=== PATIENT | female | born 1995 | race Caucasian/White ===

== ENCOUNTER 2018-09-03 07:15 | Emergency (ER) | payer SELFPAY ==
[~2018-09-03] VITALS: Ht 167.6 cm; Wt 49.9 kg
[~2018-09-03 07:15] MED LIST: AMOX500C2; SUM25T
[2018-09-03 07:21] VITALS: BP 96/63
== END 2018-09-03 08:46 | disposition home or self-care (01) ==
LOC: ER 07:15
DX: F51.4 Sleep terrors [night terrors] (principal)